=== PATIENT | male | born 2000 | race African-American/Black ===

== ENCOUNTER 2024-04-17 17:58 | Emergency (ER) | payer SELFPAY ==
--- NOTE | ~2024-04-17 | XR_ITS ---
EXAMINATION: XR CHEST CLINICAL INFORMATION: Altered mental status COMPARISON: None available. TECHNIQUE: Frontal view of the chest was obtained. FINDINGS: Clear lungs. No effusion or pneumothorax. Cardiomediastinal silhouette is within normal limits. XR/XR chest 1V IMPRESSION: Unremarkable examination.
--- NOTE | ~2024-04-17 | CT_ITS ---
EXAMINATION: CT HEAD WITHOUT CONTRAST CLINICAL INFORMATION: Altered mental status COMPARISON: None. TECHNIQUE: Multidetector CT examination of the head is performed without contrast. This CT examination was performed using dose optimization techniques as appropriate, variously including the following: *Automated exposure control *Adjustment of mA and/or kV according to patient size (this includes techniques or standardized protocols for targeted exams where dose is matched to indication/reason for exam; i.e. extremities or head) *Use of iterative reconstruction technique DLP: 637 mGy-cm FINDINGS: There is no evidence of a recent intracranial hemorrhage or extra-axial collection. The midline structures are nondisplaced. The ventricles, cisterns, and sulci are within normal limits. There is no evidence of an intra-axial mass. There are no suspicious focal areas of abnormal brain attenuation. The ryan-white interface is within normal limits. There is no evidence of acute territorial infarct. The paranasal sinuses and mastoids are within normal limits. CT/CT head/brain wo IV con IMPRESSION: 1. There is no evidence of a recent intracranial hemorrhage. 2. No acute infarct. 3. No etiology for altered mental status demonstrated
[2024-04-17 17:59] VITALS: BP 125/80; PULSE 86; O2SAT 98
[2024-04-17 18:03] VITALS: BP 129/78; PULSE 82; RESP 18; TEMP 36.8; O2SAT 99; BMI 17.7
--- NOTE | 2024-04-17 18:07 | PC.NURSE ---
Patient arrived via EMS from [facility] in [place]. EMS reports patient was sleeping and seemed disoriented to them. Upon arrival patient alert and oriented but states the year is 2024 when asked. Ablw to recall who is the president. patient states lives in [facility] and is here in [place] visiting a friend. Statys caught a ridde but does not elaborate further. Denies drug use, states was just tired
--- NOTE | 2024-04-17 18:39 | ED.AMS ---
HPI - Altered Mental Status General Chief Complaint: General Medical Stated Complaint: from [facility], [facility], unaware of time or place Time Seen by Provider: 04/17/24 18:33 Source: patient and EMS Mode of arrival: EMS Limitations: no limitations History of Present Illness ED Provider: Sumi Clark PA-C HPI narrative: 23 year old male with no significant past medical history presents today via EMS w/ altered mental status s/p being found sleeping in [employer]. Patient denies any drug or alcohol use, states he was tired and fell asleep on [employer] table while eating by accident and was awoken by EMS. He denies chest pain, difficulty breathing, shortness of breath, abdominal pain, fevers, headaches, muscle pain. States that he is hungry and wants food. No recent illness, no trauma, falls or injuries. MD complaint: altered mental status Associated symptoms: denies other symptoms Related Data Previous Rx's ?Medication ?Instructions ?Recorded nitrofurantoin 100 mg PO Q12H 7 days #14 caps 04/17/24 monohydrate/macrocrystals 100 mg capsule (Macrobid) Allergies Allergy/AdvReac Type Severity Reaction Status Date / Time No Known Allergies Allergy Verified 04/17/24 18:04 Review of Systems Review of Systems: Constitutional: No Fever, No Chills ENT/Mouth: No Ear Pain, No Nasal Congestion, No sore throat Cardiovascular: No Chest Pain, No SOB Respiratory: No Cough, No Sputum, No Wheezing Gastrointestinal: No Nausea, No Vomiting, No Diarrhea, No Constipation, No Abdominal pain Musculoskeletal: No joint pain, No Myalgias Skin: No Skin Lesions, No rash Neuro: No Weakness Yes all other systems are reviewed and are negative Constitutional: Constitutional: Reports as per HPI Neurologic: Denies Abnormal speech present [facility] Past Medical History Attestation statement: The following information was validated with the patient. Source: old records reviewed Social History Social History Alcohol intake: never Smoked in Last 30 Days: No Use of substances other than those prescribed or required for medical reasons: No Advance Directives: No Advance Directives Information Provided: No Physical Exam ED Vital Signs: Vital Signs - 24 hr 04/17/24 18:03 04/17/24 23:23 04/17/24 23:55 Temperature 98.2 F 98.5 F 98.5 F Pulse Rate 82 69 69 Respiratory Rate 18 17 17 Blood Pressure 129/78 117/56 L 117/56 L Pulse Oximetry 99 99 99 Oxygen Delivery Method Room Air Room Air Room Air BMI result Body Mass Index 17.7 Const General: cooperative, no acute distress, alert and awake Orientation/consciousness: oriented to person and oriented to place HENMT Head: Yes normal to inspection and Yes atraumatic Ears: hearing grossly normal bilaterally General nose exam: Normal external nose present Face and sinus: Yes normal facial exam Eyes General: appearance normal, both eyes and all related structures Pupils: Equal, round and reactive pupils present EOM: EOMs intact bilaterally Neck Neck: Yes normal visual inspection and Yes no meningeal signs Resp Effort & Inspection: normal respiratory effort and no respiratory distress Auscultation: clear to auscultation bilaterally, no rhonchi and no wheezes Cardio Rate: regular rate Heart sounds: S1 normal heart sound present and S2 normal heart sound present GI Inspection: Yes normal to inspection Palpation (GI): Soft to palpation, nontender, no guarding and not rigid Skin Rashes: no rashes Wounds: no wounds Neuro General: oriented to person, oriented to place, tone normal, moves all extremities, no meningeal signs, no focal motor deficits and CN's II-XI intact bilaterally Cranial nerves: Yes CN's II-XII intact bilaterally and Yes Equal, round and reactive pupils present Cognition (Neuro): normal cognition Speech: No Abnormal speech present Extrem General: Yes normal to inspection Course Course Course Narrative: -labs reassuring. Ethanol negative. COVID/flu/RSV negative -chest x-ray unremarkable CT head/brain wo IV con IMPRESSION: 1. There is no evidence of a recent intracranial hemorrhage. 2. No acute infarct. 3. No etiology for altered mental status demonstrated -UA infected. Will give 1st dose of antibiotic in the ED -tox screen negative 2315--on re-evaluation patient is sleeping, easily arousable, A&O x3. Safe for discharge at this time Results discussed with patient including worrisome signs and symptoms and strict return precautions, and when to return to the emergency department. They verbalized understanding and feel safe for discharge at this time. Medications Administered Discontinued Medications Generic Name Dose Route Start Last Admin Trade Name Freq PRN Reason Stop Dose Admin Nitrofurantoin Macrocrystals 100 mg 08/10/24 23:16 04/17/24 23:51 Nitrofurantoin Monohyd/M-Cryst 100 Mg Capsule PO 04/17/24 23:17 100 mg ONCE ONE Administration Medical Decision Making Medical Decision Making [facility] Narrative: 23 year old male with no significant past medical history presents today via EMS w/ altered mental status s/p being found sleeping in [employer] [facility]. On exam vital signs stable, NAD, nontoxic appearing, no evidence of trauma, A&O x2, believes it is 2024. Concern for substance use. Rule out metabolic and infectious etiologies. Lower suspicion for CVA/TIA. Lower suspicion for meningitis/encephalitis Plan: Labs, UA, tox screen, head CT, re-evaluate Differential Diagnosis Differential Diagnoses: The differential diagnosis associated with the presentation includes Drug overdose, stroke, hepatic encephalopathy, infection/sepsis Admission/Observation Consideration of admission/observation: Escalation of care including admission/observation considered Lab Data [facility] Lab Attestation statement: I reviewed the patient's lab results. 04/17/24 19:24 04/17/24 19:24 Labs: Lab Results 04/17/24 04/17/24 Range/Units 19:24 21:05 WBC 3.8 L (4.8-10.8) X10*3/uL RBC 4.05 L (4.60-5.80) X10*6/uL Hgb 13.0 L (14.0-18.0) g/dl Hct 37.5 L (42.0-52.0) % MCV 92.6 (80.0-98.0) fL MCH 32.1 (27.0-33.0) pg MCHC 34.7 (31.0-36.0) g/dl RDW 12.3 (11.0-16.0) % Plt Count 216 (160-400) X10*3/uL MPV 9.7 (9.4-12.4) fL Immature Gran % (Auto) 0.0 (0.0-0.4) % Neut % (Auto) 37.1 L (45-73) % Lymph % (Auto) 47.2 H (20-40) % [place] % (Auto) 10.6 (2-11) % Eos % (Auto) 4.0 (0-4) % Baso % (Auto) 1.1 (0-2) % Lymph # (Auto) 1.8 (1.2-4.9) X10*3/uL [place] # (Auto) 0.4 (0.1-1.2) X10*3/uL Eos # (Auto) 0.2 (0.0-0.4) X10*3/uL Baso # (Auto) 0.0 (0.0-0.2) X10*3/uL Abs Immat Gran (auto) 0.00 (0.00-0.03) X10*3/uL Absolute Neuts (auto) 1.4 L (2.0-8.3) x10*3/uL Absolute Nucleated RBC 0.000 (0.0-0.012) X10*3/uL Nucleated RBC % (auto) 0.0 (0.0-0.2) /100WBC Hold Purple Top SEE NOTE Sodium 141 (135-145) mmol/L Potassium 3.4 (3.3-5.1) mmol/L Chloride 105 (96-108) mmol/L Carbon Dioxide 28 (22-29) mmol/L Anion Gap 11 L (12-20) BUN 7 L (9-16) mg/dL Creatinine 0.84 (0.5-1.4) mg/dL Estim Creat Clear Calc 103.4 Estimated GFR > 60 Random Glucose 83 (60-115) mg/dL Calcium 8.9 (8.4-10.2) mg/dL Magnesium 1.9 (1.6-2.6) mg/dL Total Bilirubin 0.7 (0.0-1.0) mg/dL Direct Bilirubin 0.2 (0.0-0.5) mg/dL AST 12 (5-37) U/L ALT 8 (0-40) U/L Alkaline Phosphatase 92 (39-117) U/L Ammonia Cancelled Total Protein 6.6 (6.5-8.0) g/dL Albumin 4.2 (3.5-5.0) g/dL Urine Color Yellow Urine Appearance Clear Urine pH 6.0 (5.0-9.0) Ur Specific [place] >= 1.030 H (1.005-1.025) Urine Protein Trace (Neg-Trace) mg/dL Urine Glucose (UA) Negative (Negative) mg/dL Urine Ketones Trace (Negative) mg/dL Urine Blood Negative (Negative) Urine Nitrite Negative (Negative) Ur Leukocyte Esterase Small (1+) H (Negative) Urine RBC 0-2 (0-2) /HPF Urine WBC 21-50 H (0-5) /HPF Ur Squamous Epith Cells 0-2 (0-2) /HPF Urine Bacteria None Seen (None Seen) Hyaline Casts 0-2 (0-2) /LPF Urine Opiates Screen Not Detected (Not Detect) Ur Buprenorphine Scrn Not Detected (Not Detect) ng/mL Ur Oxycodone Screen Not Detected (Not Detect) ng/mL Urine Methadone Screen Not Detected (Not Detect) ng/mL Urine Fentanyl Screen Not Detected (Not Detect) Ur Barbiturates Screen Not Detected (Not Detect) Ur Phencyclidine Scrn Not Detected (Not Detect) Ur Amphetamines Screen Not Detected (Not Detect) U Benzodiazepines Scrn Not Detected (Not Detect) Urine Cocaine Screen Not Detected (Not Detect) U Marijuana (THC) Screen Not Detected (Not Detect) Ethyl Alcohol < 10 mg/dL Influenza Type A (PCR) NEGATIVE (Negative) Influenza Type B (PCR) NEGATIVE (Negative) RSV RNA Qual (PCR) NEGATIVE (Negative) SARS-CoV-2 RNA (RT-PCR) NEGATIVE (Negative) Independent Interpretation I performed an independent interpretation of an: CT Scan Radiology Impression Discussion of test interpretation with radiology: I have reviewed the radiologist's reading. Independent Historian Clinical information obtained from an independent historian. History obtained from or confirmed by: EMS External Record Review External record reviewed: Inpatient record, Office record, Outpatient record, Prior outpatient labs, Prior outpatient radiology, Primary care record and Outside ED record Tests considered The following testing was considered but not selected: As above Chronic Conditions Patient?s care impacted by: Other Social Determinants Patient?s care significantly limited by Social Determinants of Health including: Inadequate housing, Low income and Problems related to primary support group Discharge Plan Discharge Clinical Impression: Acute UTI, Lethargy Patient Disposition: Home, Self-Care Instructions: Urinary Tract Infection in Men (DC), Fatigue (ED) Additional Instructions: You have a urine infection. Macrobid as an antibiotic please take as prescribed Please practice a balanced diet. Make sure you are getting sleep Follow-up with her doctor If your symptoms persist or worsen return to the emergency department Avoid drug and alcohol use Prescriptions: New nitrofurantoin monohyd/m-cryst [Macrobid] 100 mg capsule 100 mg PO Q12H 7 Days Qty: 14 0RF Rx Instructions: must administer with a meal/food Referrals: [facility] [Provider Group] [facility] [Provider Group] Interventions: ED Discharge Assessment Last Done: 04/17/24 23:55 Discharge Date/Time: 04/17/24 23:56 Print Language: Georgian
--- NOTE | 2024-04-17 19:24 | PC.NURSE ---
Pt blood work collected and sent to lab at this time.
[2024-04-17 19:31] LABS: MANUAL DIFF FLAG NO
[2024-04-17 19:40] LABS: Basophils Percent Auto 1.1 % (0-2); Eosinophils Absolute Auto 0.2 X10*3/uL (0.0-0.4); Hematocrit 37.5 % (42.0-52.0); Lymphocytes Absolute Auto 1.8 X10*3/uL (1.2-4.9); Lymphocytes Percent Auto 47.2 % (20-40); Mean Corpuscular HGB Conc 34.7 g/dl (31.0-36.0); Mean Corpuscular Hemoglobin 32.1 pg (27.0-33.0); Mean Corpuscular Volume 92.6 fL (80.0-98.0); Mean Platelet Volume 9.7 fL (9.4-12.4); Monocytes Absolute Auto 0.4 X10*3/uL (0.1-1.2); Monocytes Percent Auto 10.6 % (2-11); Neutrophils Absolute Auto 1.4 x10*3/uL (2.0-8.3); Neutrophils Percent Auto 37.1 % (45-73); Platelet Count 216 X10*3/uL (160-400); Red Blood Count 4.05 X10*6/uL (4.60-5.80); Red Cell Distribution Width 12.3 % (11.0-16.0); White Blood Count 3.8 X10*3/uL (4.8-10.8)
[2024-04-17 19:49] LABS: Alanine Aminotransferase 8 U/L (0-40); Albumin Level 4.2 g/dL (3.5-5.0); Alkaline Phosphatase 92 U/L (39-117); Anion Gap 11 (12-20); Aspartate Amino Transferase 12 U/L (5-37); Bilirubin Direct 0.2 mg/dL (0.0-0.5); Bilirubin Total 0.7 mg/dL (0.0-1.0); Blood Urea Nitrogen 7 mg/dL (9-16); Calcium 8.9 mg/dL (8.4-10.2); Carbon Dioxide 28 mmol/L (22-29); Chloride 105 mmol/L (96-108); Creatinine Clr Calc Pharmacy 103.4; Estimated Glomerular Filt Rate > 60; Ethanol < 10 mg/dL; Glucose Random 83 mg/dL (60-115); Magnesium 1.9 mg/dL (1.6-2.6); Potassium 3.4 mmol/L (3.3-5.1); Sodium 141 mmol/L (135-145); Total Protein 6.6 g/dL (6.5-8.0)
[2024-04-17 20:15] LABS: Influenza A PCR NEGATIVE (Negative); Influenza B PCR NEGATIVE (Negative); Resp Syncy Virus RNA Qual PCR NEGATIVE (Negative); SARS COV2 PCR INHOUSE NEGATIVE (Negative)
[2024-04-17 21:16] LABS: Appearance Urine Clear; Color Urine Yellow; Glucose Urine UA Negative (Negative); Leukocyte Esterase Urine Small (1+) (Negative); Nitrite Urine Negative (Negative); Specific Gravity - Urine >= 1.030 (1.005-1.025); UMIC TRIGGER UACC YES; Urine Blood Negative (Negative); Urine Ketones Trace mg/dL (Negative); Urine Protein Trace mg/dL (Neg-Trace)
[2024-04-17 21:28] LABS: Amphetamine Screen Urine Not Detected (Not Detect); Barbiturates, Urine Not Detected (Not Detect); Benzodiazepines Screen Urine Not Detected (Not Detect); Buprenorphine Scr Not Detected (Not Detect); Cannabinoid Screen Urine Not Detected (Not Detect); Cocaine Screen Urine Not Detected (Not Detect); Fentanyl, urine Not Detected (Not Detect); Methadone Screen, Urine Not Detected (Not Detect); Opiate Screen Urine Not Detected (Not Detect); Oxycodone Screen Urine Not Detected (Not Detect); Phencyclidine Screen Urine Not Detected (Not Detect)
[2024-04-17 21:31] LABS: Bacteria Urine None Seen (None Seen); Hyaline Casts Urine 0-2 /LPF (0-2); RBC Urine 0-2 /HPF (0-2); Squamous Epithelial Cell Urine 0-2 /HPF (0-2); UACC Culture Trigger YES; WBC Urine 21-50 /HPF (0-5)
[2024-04-17 23:23] VITALS: BP 117/56; PULSE 69; RESP 17; TEMP 36.9; O2SAT 99
[2024-04-17] MEDS: Nitrofurantoin Monohyd/M-Cryst 100 MG CAPSULE PO (23:51)
[2024-04-17 23:55] VITALS: BP 117/56; PULSE 69; RESP 17; TEMP 36.9; O2SAT 99
== END 2024-04-17 23:56 | disposition home or self-care (01) ==
PROVIDERS: Physician Assistant; Emergency Provider Emergency Medicine Emergency Medical Services
DX: N39.0 Urinary tract infection, site not specified (principal); R53.83 Other fatigue; Z03.818 Encounter for observation for suspected exposure to other biological agents ruled out
CPT/HCPCS: 0241U; 70450; 71045; 80048; 80076; 80307; 81001; 82140; 83735; 85025; 87086; 99284